=== PATIENT | female | born 1950 | race Caucasian/White ===

== ENCOUNTER 2025-01-02 18:06 | Emergency (ER) | payer MEDICARE, BC ==
[2025-01-02] MEDS: Bacitracin Oint 1 GM U/D Packet TOP ONE (18:29)
== END 2025-01-02 18:40 | disposition home or self-care (01) ==
LOC: LB.ED 18:06
DX: S30.860A Insect bite (nonvenomous) of lower back and pelvis, initial encounter (principal); Z91.018 Allergy to other foods; Z91.048 Other nonmedicinal substance allergy status; W57.XXXA Bitten or stung by nonvenomous insect and other nonvenomous arthropods, initial encounter
CPT/HCPCS: 99281